=== PATIENT | male | born 1955 | race Caucasian/White ===

== ENCOUNTER 2022-01-12 06:18 | Day surgery (SDC) | payer BC ==
[2022-01-12] VITALS (11 sets, daily range): BP systolic 98–119; BP diastolic 51–85
[~2022-01-12] VITALS: Ht 180.3 cm; Wt 93.4 kg
[~2022-01-12 06:18] MED LIST: CARV-50 PO; CEPH-357 PO; ESOM40CA PO; GLIP-126 PO; HYDR-3965 PO; HYDR12.522 PO; INSULIN; LISI40TA13 PO; METF500T PO; TRIA15CR61 TP
[2022-01-12] MEDS ORDERED: fentaNYL/PF 50MCG/1 ML 2ML syringe IV ONE (06:45)
[2022-01-12] MEDS ORDERED: MIDAZolam 1mg/ml 10ml vial IV ONE (06:45)
[2022-01-12] MEDS ORDERED: SEMA14TA2 PO (07:28)
[2022-01-12] MEDS ORDERED: ALBU90AE INH (07:28)
[2022-01-12] MEDS ORDERED: GEMF600T PO (07:28)
[2022-01-12] MEDS ORDERED: PRAV40TA3 PO (07:28)
[2022-01-12] MEDS ORDERED: ALLO100T PO (07:28)
[2022-01-12] MEDS ORDERED: DIGO-21 PO (07:28)
[2022-01-12] MEDS ORDERED: GABA300C PO (07:28)
[2022-01-12] MEDS ORDERED: METO-467 PO (07:28)
[2022-01-12] MEDS ORDERED: FLEC100T2 PO ×2 (07:28)
[2022-01-12] MEDS ORDERED: TRAM50TA2 PO (07:28)
[2022-01-12] MEDS ORDERED: GLIM4TAB PO (07:28)
[2022-01-12] MEDS ORDERED: LOSA-420 PO (07:28)
[2022-01-12] MEDS ORDERED: EMPA10TA PO (07:28)
[2022-01-12] MEDS ORDERED: APIX5TAB3 PO (07:28)
[2022-01-12 07:32] LABS: BASOPHILS # (AUTO) 0.1 X10'3 (0-0.2); BASOPHILS % (AUTO) 0.9 % (0-1); EOSINOPHILS # (AUTO) 0.2 X10'3 (0-0.9); EOSINOPHILS % (AUTO) 2.2 % (0-6); HEMATOCRIT 55.2 % (42.0-52.0); LYMPHOCYTES # (AUTO) 1.4 X10'3 (1.1-4.8); LYMPHOCYTES % (AUTO) 19.9 % (21-51); MEAN CORPUSCULAR HEMOGLOBIN 31.3 PG (27.0-31.0); MEAN CORPUSCULAR HGB CONC 34.4 g/dL (33.0-36.5); MEAN CORPUSCULAR VOLUME 90.9 FL (78-98); MEAN PLATELET VOLUME 10.3 FL (7.4-10.4); MONOCYTES # (AUTO) 0.6 X10'3 (0-0.9); MONOCYTES % (AUTO) 9.1 % (2-12); NEUTROPHILS # (AUTO) 4.6 X10'3 (1.8-7.7); NEUTROPHILS % (AUTO) 67.9 % (42-75); PLATELET COUNT 162 X10'3 (140-440); RED BLOOD COUNT 6.07 X10'6 (4.70-6.10); RED CELL DISTRIBUTION WIDTH 13.8 % (11.5-14.5); WHITE BLOOD COUNT 6.8 X10'3 (4.5-11.0)
[2022-01-12 07:40] LABS: ALBUMIN 3.9 G/DL (3.4-5.0); ANION GAP 13 (8-16); BLOOD UREA NITROGEN 33 MG/DL (7-18); BUN/CREATININE RATIO 25.8 (5.4-32.0); CALCIUM 9.1 MG/DL (8.5-10.1); CHLORIDE 104 MMOL/L (99-107); CREATININE 1.28 MG/DL (0.60-1.10); MAGNESIUM 2.3 MG/DL (1.5-2.4); SODIUM 138 MMOL/L (135-145); TOTAL CARBON DIOXIDE 20.8 MMOL/L (24-32); eGFR 56 ML/MIN
[2022-01-12 07:44] LABS: GLUCOSE 171 MG/DL (70-104); POTASSIUM 3.9 MMOL/L (3.5-5.1)
== END 2022-01-12 10:22 | disposition home or self-care (01) ==
LOC: SSTAY O 06:18
PROVIDERS: ATTEND Internal Medicine Cardiovascular Disease
DX: I48.91 Unspecified atrial fibrillation (principal); E11.9 Type 2 diabetes mellitus without complications; I25.10 Atherosclerotic heart disease of native coronary artery without angina pectoris; I10 Essential (primary) hypertension; E78.5 Hyperlipidemia, unspecified; Z95.5 Presence of coronary angioplasty implant and graft; Z79.899 Other long term (current) drug therapy; Z79.01 Long term (current) use of anticoagulants; Z82.49 Family history of ischemic heart disease and other diseases of the circulatory system; Z83.3 Family history of diabetes mellitus
CPT/HCPCS: 36415; 80048; 82948; 83735; 85025; 85610; 92960; 93005; J2250; J3010; J7030; A4620